=== PATIENT | female | born 1975 | race African-American/Black ===

== ENCOUNTER 2024-03-11 11:35 | Inpatient (IN) | payer OTHER ==
[~2024-03-11] VITALS: Ht 154.9 cm; Wt 58.0 kg
[2024-03-11 11:59] LABS: Urine Bacteria None Seen /hpf (None Seen)
[2024-03-11 12:17] LABS: Urine Blood 1+ /uL (Negative); Urine Clarity Turbid (Clear); Urine Color Yellow (Yellow); Urine Hyaline Cast FEW /lpf (0 - 2); Urine Mucus FEW (None Seen); Urine Protein, UAD 1+ (Negative); Urine Specific Gravity 1.022 (1.001-1.035); Urine Urobilinogen 3 mg/dL (Negative); Urine WBC 4 /hpf (0 - 5)
--- NOTE | 2024-03-11 13:11 | ED.PDOC ---
GI ASSESSMENT HPI Comments 48 year old female presents to the ED with chief complaint of N/V. Patient reports that she has been experiencing N/V with associated abdominal pain that radiates to the back and fatigue for the past 2 days. Patient denies any diarrhea, fever, chills, dysuria, chest pain, or SOB. Chief Complaint: Nausea/Vomiting Time Seen by MD: 13:08 Primary Care Provider: ADI Zimmer Notes: Nurses Notes, Medications, Allergies Allergies: Coded Allergies: Morphine (Verified Allergy, Severe, 03/11/24) Information Source: Patient Mode of Arrival: Ambulatory Timing: Days Duration: Since onset Prehospital treatment: None Quality: Aching Vomitus: Watery Stool: Normal Severity: Moderate Recent: None Recent Hx of: None Pain Location: Epigastric Modifying Factors: Nothing Associated sign and symptoms: Nausea, Vomiting, Abdominal Pain Past Medical History PAST MEDICAL HISTORY: COPD, GERD, High Lipids Past Medical History (Other): Cardiac valvular disease, Lupus Surgical History: Cholecystectomy Surgical History (Other): Heart mechanical valves x2 [employer] History: Denies all [employer] Hx Family History Family History: Reviewed,noncontributory to illness Social History Smoker: Non-Smoker Alcohol: Denies ETOH Use Drugs: Denies Drug Use Lives In: Home Constitutional: reports: fatigue; denies: chills, diaphoresis, fever, malaise, sweats, weakness, others EENTM: denies: blurred vision, double vision, ear bleeding, ear discharge, ear drainage, ear pain, ear ringing, eye pain, eye redness, hearing loss, mouth pain, mouth swelling, nasal discharge, nose bleeding, nose congestion, nose pain, photophobia, tearing, throat pain, throat swelling, voice changes, others Respiratory: denies: cough, hemoptysis, orthopnea, SOB at rest, shortness of breath, SOB with excertion, stridor, wheezing, others Cardiovascular: denies: chest pain, dizzy spells, diaphoresis, Dyspnea on exertion, edema, irregular heart beat, left arm pain, lightheadedness, palpitations, PND, syncope, others Gastrointestinal: reports: abdominal pain, nausea, vomiting; denies: abdomen distended, blood streaked bowels, constipated, diarrhea, dysphagia, difficulty swallowing, hematemesis, melena, poor appetite, poor fluid intake, rectal bleeding, rectal pain, others Genitourinary: denies: abnormal vagina bleeding, burning, dyspareunia, dysuria, flank pain, frequency, hematuria, incontinence, pain, , vagina discharge, urgency, others Neurological: denies: dizziness, fainting, headache, left sided numbness, left sided weakness, numbness, paresthesia, pre-existing deficit, right sided numbness, right sided weakness, seizure, speech problems, tingling, tremors, weakness, others Musculoskeletal: reports: back pain; denies: gout, joint pain, joint swelling, muscle pain, muscle stiffness, neck pain, others Integumetry: denies: bruises, change in color, change in hair/nails, dryness, laceration, lesions, lumps, rash, wounds, others Allergic/Immunocompromised: denies: Difficulty Healing, Frequent Infections, Hives, Itching, others Hematologic/Lymphatic: denies: anemia, blood clots, easy bleeding, easy bruising, swollen glands, others Endocrine: denies: excessive hunger, excessive sweating, excessive thirst, excessive urination, flushing, intolerance to cold, intolerance to heat, un explained weight gain, unexplained weight loss, others Psychiatric: denies: anxiety, bipolar disorder, depression, hopeless, panic disorder, schizophrenia, sleepless, suicidal, others All Other Systems: Reviewed and Negative Physical Exam General Appearance: Moderate Distress, Thin HEENT: Other (Pupils symmetric, no facial asymmetry, dry mucous membranes) Neck: Full Range of Motion, Normal Inspection Respiratory: Lungs Clear, No Accessory Muscle Use, No Respiratory Distress, Normal Breath Sounds Cardiovascular: No Edema, No JVD, Regular Rate/Rhythm Breast Exam: Deferred Gastrointestinal: Diffuse, Soft, Tenderness Genitalia: Deferred Pelvic: Deferred (Okay a day) Rectal: Deferred Extremities: Normal inspection, Normal range of motion, Non-tender, No pedal edema Musculoskeletal : Apperance: Normal Neurologic: Alert (Oriented x4), Normal Mood (Crying), Other (Ambulatory without difficulty. No gross focal deficit.) Cerebellar Function: NOT DONE Reflexes: NOT DONE Skin: Dry, Normal Color, Warm Lymphatic: NOT DONE Was a procedure done? Was a procedure done?: No GI differential Dx Differential Diagnosis: Cholecystitis, Diverticular disease, Gastritis/PUD, Gastroenteritis, Inflammatory BD, Ischemic Bowel, UTI, Dehydration, Diabetes/ DKA, Electrolyte Imbalance, Food Poisoning, , Bacterial, Parasitic, Viral, Hypovolemia, Impaction, Stress Ulcer X-Ray, Labs, Meds, VS Vital Signs Date Time Temp Pulse Resp B/P (MAP) Pulse Ox O2 Delivery O2 Flow Rate FiO2 03/11/24 16:44 105 19 162/95 03/11/24 16:19 98.0 120 20 153/91 (111) 100 98.0 03/11/24 16:14 120 20 155/91 03/11/24 13:36 97.9 114 14 95/60 (72) 98 97.9 03/11/24 13:36 114 15 97 Room Air* 0 21 03/11/24 11:45 98.5 118 16 104/74 (84) 99 Lab Test 03/11/24 16:09 03/11/24 13:02 03/11/24 11:50 Range/Units Lactic Acid Level 1.4 0.4-2.0 mmol/L Troponin I High Sensitivity 19 </=34 ng/L White Blood Count 11.6 H 4.4-10.8 10^3/uL Red Blood Count 3.60 L 4.0-5.20 10^6/uL Hemoglobin 12.3 12.2-16.2 g/dL Hematocrit 37.3 36.0-46.0 % Mean Corpuscular Volume 103.6 H 80.0-100.0 fL Mean Corpuscular Hemoglobin 34.1 H 28.0-32.0 pg Mean Corpuscular Hemoglobin Concent 32.9 32.0-36.0 g/dL Red Cell Distribution Width 14.9 H 11.8-14.3 % Platelet Count 270 140-450 10^3/uL Mean Platelet Volume 9.3 6.9-10.8 fL Neutrophils (%) (Auto) 75.8 37.0-80.0 % Lymphocytes (%) (Auto) 13.4 10.0-50.0 % Monocytes (%) (Auto) 9.7 0.0-12.0 % Eosinophils (%) (Auto) 0.2 0.0-7.0 % Basophils (%) (Auto) 0.9 0.0-2.0 % Neutrophils # (Auto) 8.8 H 1.6-8.6 10 ^3/uL Lymphocytes # (Auto) 1.6 0.4-5.4 10 ^3/uL Monocytes # (Auto) 1.1 0-1.3 10 ^3/uL Eosinophils # (Auto) 0 0-0.8 10 ^3/uL Basophils # (Auto) 0.1 0-0.2 10 ^3/uL Nucleated Red Blood Cells 0.0 % Sodium Level 141 136-145 mmol/L Potassium Level 2.8 L 3.5-5.1 mmol/L Chloride Level 99 98-107 mmol/L Carbon Dioxide Level 28 20-31 mmol/L Anion Gap 14 5-15 Blood Urea Nitrogen 24 H 9-23 mg/dL Creatinine 1.57 H 0.550-1.02 mg/dL Glomerular Filtration Rate Calc 40 >90 mL/min BUN/Creatinine Ratio 15.3 10.0-20.0 Serum Glucose 97 74-106 mg/dL Calcium Level 10.8 H 8.7-10.4 mg/dL Total Bilirubin 0.8 0.2-1.0 mg/dL Aspartate Amino Transferase (AST) 53 H 13-40 U/L Alanine Aminotransferase (ALT) 62 H 7-40 U/L Alkaline Phosphatase 168 H 46-116 U/L B-Type Natriuretic Peptide 115.93 0-100 pg/mL Total Protein 8.7 H 5.7-8.2 g/dL Albumin 4.9 H 3.2-4.8 g/dL Lipase 34 12-53 U/L Beta HCG, Quantitative 4.6 H 1.5-4.2 mIU/mL Urine Color Yellow Yellow Urine Clarity Turbid H Clear Urine pH 6.0 5.0-9.0 Urine Specific [place] 1.022 1.001-1.035 Urine Protein 1+ H Negative Urine Ketones 1+ H Negative Urine Blood 1+ H Negative /uL Urine Nitrite Negative Negative Urine Bilirubin Negative Negative Urine Urobilinogen 3 H Negative mg/dL Urine Leukocyte Esterase 1+ Negative /uL Urine RBC 2 0 - 4 /hpf Urine WBC 4 0 - 5 /hpf Urine Squamous Epithelial Cells Mod <5 /hpf Urine Bacteria None seen None Seen /hpf Urine Hyaline Casts Few 0 - 2 /lpf Urine Mucus Few None Seen Urine Glucose Normal Normal mg/dL Current Medications Medications (Trade) Dose Ordered Sig/Kunal Route Start Time Stop Time Status Last Admin Sodium Chloride 1,450 ml @ 1,450 mls/hr ONCE ONCE IV 03/11/24 13:15 03/11/24 14:14 DC 03/11/24 13:41 Ondansetron HCl (Zofran) 4 mg ONCE ONCE IV 03/11/24 13:15 03/11/24 13:16 DC 03/11/24 16:14 Hydromorphone HCl (Dilaudid Injection) 1 mg ONCE ONCE IV 03/11/24 13:15 03/11/24 13:16 DC 03/11/24 16:14 Potassium Bicarbonate (Klor-Con/Ef) 50 meq ONCE ONCE PO 03/11/24 15:30 03/11/24 16:05 DC 03/11/24 16:18 PROCEDURE(s): ABPL - CT AB PEL WO CON-NO ORAL OR IV REASON: diffuse abd pain, n/v ORDER NUMBER(s): [id number], ACCESSION NUMBER(s): [id number] CLINICAL HISTORY: diffuse abd pain, n/v TECHNIQUE: CT of the abdomen and pelvis was performed without intravenous c ontrast. This exam was performed according to our departmental dose optimization program. Up-to-date CT equipment and radiation dose reduction techniques are utilized as appropriate. [Radimetrics Exposure Report] CTDI: [CTDIvol] DLP: 250.67 WID: COMPARISON: None FINDINGS: Lower Thorax: Normal-sized heart. Prior median sternotomy and aortic valve prosthesis and mitral valve prosthesis . Patchy ground-glass opacities in the lingula. There is mild emphysema. Liver and Biliary system: Prior cholecystectomy. Mild choledocho ectasia status post cholecystectomy. Grossly unremarkable unopacified liver. Spleen: Unremarkable. Adrenal Glands and Kidneys: Thickened fifb-ivpgorh-qsng-right adrenal glands. No hydronephrosis or nephrolithiasis Pancreas and Retroperitoneum: Unremarkable. Aorta and Major Vessels: Moderate to marked calcified plaque in the aortoiliac vessels Bowel, Mesentery and Peritoneal space: Normal caliber small and large bowel normal appendix. Fluid-filled ascending colon. Mild wall thickening of the ascending and transverse colon. There is no free air or loculated fluid collection. Pelvis: There is an IUD in the uterus. There is no pelvic lymphadenopathy. Urinary bladder is mildly distended Abdominal wall and Osseous Structures: No destructive osseous lesion. IMPRESSION: 1. Mild wall thickening of the ascending and transverse colon which could be infectious or inflammatory colitis. 2. Fluid-filled ascending colon which May manifest as loose stools and/or diarrhea. 3. Patchy ground-glass opacities in the lingula which could reflect atypical pneumonia. 4. Mild emphysema. X-Ray, Labs, Meds, VS Comment 48-year-old female with a history of a PD, GERD, hyperlipidemia and cardiac valve replacement complaining of abdominal pain, nausea and vomiting Vitals remarkable for heart rate 118 Exam remarkable for diffuse abdominal tenderness to palpation, nontender to percussion, no rebound or guarding Rhythm strip independently interpreted by me: Sinus tach, rate 118, no ectopy. CT abdomen and pelvis IMPRESSION: 1. Mild wall thickening of the ascending and transverse colon which could be infectious or inflammatory colitis. 2. Fluid-filled ascending colon which May manifest as loose stools and/or diarrhea. 3. Patchy ground-glass opacities in the lingula which could reflect atypical pneumonia. 4. Mild emphysema. CBC remarkable for WBC 11.6, CMP remarkable for potassium 2.8, BUN 24, creatinine 1.57, AST 53, ALT 62, alkaline phos 168 UA abnormal consistent with either UTI or contaminated specimen Lipase normal Lactate normal Patient treated with the following in the ED: 30 cc/kilogram IV normal saline bolus, Zofran 4 mg IV, Dilaudid 1 mg IV, effervescent potassium 50 mEq p.o. , Zosyn 4.5 g IV On re-evaluation, patient states her pain has somewhat improved. Vitals are stable. Plan is to admit the patient for pain control, electrolyte correction, IV hydration and antibiotics. Time of 1ST Reevaluation: 14:08 Reevaluation 1ST: Unchanged Time of 2ND Reevaluation: 18:25 Reevaluation 2ND: Improved Patient Education/Counseling: Diagnosis, Treatment Family Education/Counseling: No Family Present Departure 1 Departure Time of Disposition: 15:27 Impression: Primary Impression: Abdominal pain Qualified Codes: R10.84 - Generalized abdominal pain Additional Impressions: Nausea and vomiting Qualified Codes: R11.2 - Nausea with vomiting, unspecified Hypokalemia Acute kidney injury Transaminitis Colitis Disposition: ADMITTED INPATIENT Admit to: Med Surg Condition: Fair Critical Care Note Critical Care Time?: No Stability Stability form required: No Heart Score Heart Score: Heart Score Response (Comments) Value History N/A 0 EKG N/A 0 Age N/A 0 Risk Factors N/A 0 Troponin N/A 0 Total 0 I personally scribed for MARIAN VOGEL MD ([email or web address]) on 03/11/24 at 13 :11. Electronically submitted by Bronson Cummings ([email or web address]). MARIAN VOGEL MD Mar 11, 2024 13:11
[2024-03-11 13:27] LABS: Basophils # (auto) 0.1 10 ^3/uL (0-0.2); Eosinophils # (auto) 0 10 ^3/uL (0-0.8); Eosinophils % (auto) 0.2 % (0.0-7.0); Hemoglobin 12.3 g/dL (12.2-16.2); Lymphocytes # (auto) 1.6 10 ^3/uL (0.4-5.4)
[2024-03-11 13:29] LABS: Basophils % (auto) 0.9 % (0.0-2.0); Hematocrit 37.3 % (36.0-46.0); Lymphocytes % (auto) 13.4 % (10.0-50.0); Mean Corpuscular Hemoglobin 34.1 pg (28.0-32.0); Mean Corpuscular Hgb Conc. 32.9 g/dL (32.0-36.0); Mean Corpuscular Volume 103.6 fL (80.0-100.0); Monocytes # (auto) 1.1 10 ^3/uL (0-1.3); Monocytes % (auto) 9.7 % (0.0-12.0); Neutrophils # (auto) 8.8 10 ^3/uL (1.6-8.6); Neutrophils % (auto) 75.8 % (37.0-80.0); Platelet Count (auto) 270 10^3/uL (140-450); Red Cell Distribution Width 14.9 % (11.8-14.3); White Blood Cell 11.6 10^3/uL (4.4-10.8)
[2024-03-11 13:36] VITALS: PULSE 114; RESP 15; O2SAT 97
[2024-03-11 13:41] LABS: Anion Gap 14 (5-15); BUN/Creatinine Ratio 15.3 (10.0-20.0); Carbon Dioxide 28 mmol/L (20-31); Chloride 99 mmol/L (98-107); Glucose 97 mg/dL (74-106); Sodium 141 mmol/L (136-145)
[2024-03-11] MEDS: SODIUM CHLORIDE 0.9% 1,450 ML IV ONE (13:41)
[2024-03-11 13:42] LABS: Bilirubin, Total 0.8 mg/dL (0.2-1.0)
[2024-03-11 13:45] LABS: Alanine Aminotransferase 62 U/L (7-40); Albumin 4.9 g/dL (3.2-4.8); Alkaline Phosphatase 168 U/L (46-116); Aspartate Aminotransferase 53 U/L (13-40); Blood Urea Nitrogen 24 mg/dL (9-23); Calcium 10.8 mg/dL (8.7-10.4); Potassium 2.8 mmol/L (3.5-5.1); Total Protein 8.7 g/dL (5.7-8.2)
[2024-03-11] MEDS: HYDROmorphone HCL 2 MG/ML VL/or syr IV ONE (16:14)
[2024-03-11] MEDS: ONDANSETRON HCL 4 MG/2 ML VIAL IV ONE (16:14)
[2024-03-11] MEDS: POTASSIUM EFFERVESENT TAB 25 MEQ PO ONE (16:18)
--- NOTE | 2024-03-11 18:04 | DVH ---
CLINICAL HISTORY: diffuse abd pain, n/v TECHNIQUE: CT of the abdomen and pelvis was performed without intravenous contrast. This exam was per formed according to our departmental dose optimization program. Up-to-date CT equipment and radiation dose reduction techniques are utilized as appropriate. [Radimetrics Exposure Report] CTDI: [CTDIvol] DLP: 250.67 WID: COMPARISON: None FINDINGS: Lower Thorax: Normal-sized heart. Prior median sternotomy and aortic valve prosthesis and mitral valv e prosthesis . Patchy ground-glass opacities in the lingula. There is mild emphysema. Liver and Biliary system: Prior cholecystectomy. Mild choledocho ectasia status post cholecystectomy. Grossly unremarkable unopacified liver. Spleen: Unremarkable. Adrenal Glands and Kidneys: Thickened yqdm-yudyeig-hhjo-right adrenal glands. No hydronephrosis or ne phrolithiasis Pancreas and Retroperitoneum: Unremarkable. Aorta and Major Vessels: Moderate to marked calcified plaque in the aortoiliac vessels Bowel, Mesentery and Peritoneal space: Normal caliber small and large bowel normal appendix. Fluid-fi lled ascending colon. Mild wall thickening of the ascending and transverse colon. There is no free ai r or loculated fluid collection. Pelvis: There is an IUD in the uterus. There is no pelvic lymphadenopathy. Urinary bladder is mildly distended Abdominal wall and Osseous Structures: No destructive osseous lesion. IMPRESSION: 1. Mild wall thickening of the ascending and transverse colon which could be infectious or inflammato ry colitis. 2. Fluid-filled ascending colon which May manifest as loose stools and/or diarrhea. 3. Patchy ground-glass opacities in the lingula which could reflect atypical pneumonia. 4. Mild emphysema.
[2024-03-11] MEDS: PIPERACILLIN-TAZO 4.5GM 100 ML IV ONE (18:30)
[2024-03-11] MEDS ORDERED: ACETAMINOPHEN 325 MG TAB PO PRN (18:45)
[2024-03-11] MEDS: PANTOPRAZOLE 40 MG TAB PO ONE (18:45)
[2024-03-11 20:47] VITALS: TEMP 98.7
[2024-03-11] MEDS: metroNIDAZOLE 500MG/100ML 100 ML IV SCH (21:55)
[2024-03-11] MEDS: ATORVASTATIN 20 MG TAB PO SCH (21:55)
[2024-03-11] MEDS: busPIRone HCL 10 MG TAB PO SCH (21:55)
[2024-03-11] MEDS: HYDROcodone-ACET 5/325MG TAB PO PRN (21:56)
[2024-03-11] MEDS: ONDANSETRON HCL 4 MG/2 ML VIAL IV PRN (21:56)
--- NOTE | 2024-03-12 03:47 | DVHHP2 ---
History of Present Illness Reason for Visit: Abdominal pain History of Present Illness 48-year-old female presents for evaluation of abdominal pain. Patient endorses a three day history of diffuse abdominal pain with associated nausea and vomiting. Denies diarrhea or fever. No cardiac or respiratory complaints reported. Past Medical History Dyslipidemia, COPD, GERD, lupus Past Surgical History Heart valve replacement Family History Noncontributory Smoke: No ALCOHOL: none Drugs: None Lives: with Family Review of Systems Review of Systems Review of systems are currently negative otherwise addressed in HPI. Allergies: Coded Allergies: Morphine (Verified Allergy, Severe, 03/11/24) Medications Current Medications Medications Dose Ordered Sig/Kunal Route Start Time Stop Time Status Last Admin Dose Admin Atorvastatin Calcium 20 mg HS PO 03/11/24 22:00 03/11/24 21:55 20 MG Pantoprazole Sodium 40 mg DAILY@0600 PO 03/12/24 06:00 Buspirone HCl 15 mg Q12HR PO 03/11/24 22:00 03/11/24 21:55 15 MG Ceftriaxone Sodium 50 ml @ 100 mls/hr DAILY@09 IV 03/12/24 09:00 Metronidazole 100 ml @ 100 mls/hr Q8HR IV 03/11/24 22:00 03/11/24 21:55 100 MLS/HR Acetaminophen/ Hydrocodone Bitart 1 tab Q4HP PRN PO 03/11/24 18:45 03/11/24 21:56 1 TAB Ondansetron HCl 4 mg Q4HP PRN IV 03/11/24 18:45 03/11/24 21:56 4 MG Acetaminophen 650 mg Q6HP PRN PO 03/11/24 18:45 Exam Vital Signs Vital Signs Date Time Temp Pulse Resp B/P (MAP) Pulse Ox O2 Delivery O2 Flow Rate FiO2 03/12/24 01:22 97 16 118/67 (84) 100 03/11/24 20:47 98.7 98.7 03/11/24 13:36 Room Air* 0 21 Exam Gen: 48-year-old female in mild distress Skin: Warm, dry, normal color and texture, no rash. HEENT: Normocephalic atraumatic, mucous membranes moist and pink. Neck: Cervical and supraclavicular nodes normal without enlargement, trachea is midline, thyroid gland is normal without masses. Pulmonary: Clear to auscultation and percussion bilaterally. Cardiac: Regular rate and rhythm. No murmur Abdomen: Soft, nontender, nondistended, bowel sounds present all 4 quadrants, no guarding, no rigidity, no organomegaly. Extremities: No cyanosis, clubbing, no edema Neuro: Cranial nerves II through XII grossly intact, normal affect and speech, no focal motor deficits. Labs/Xrays ORDERING PHYSICIAN: MARIAN VOGEL MD PROCEDURE(s): ABPL - CT AB PEL WO CON-NO ORAL OR IV REASON: diffuse abd pain, n/v ORDER NUMBER(s): [id number], ACCESSION NUMBER(s): [id number] CLINICAL HISTORY: diffuse abd pain, n/v TECHNIQUE: CT of the abdomen and pelvis was performed without intravenous contrast. This exam was performed according to our departmental dose optimization program. Up-to-date CT equipment and radiation dose reduction techniques are utilized as appropriate. [Radimetrics Exposure Report] CTDI: [CTDIvol] DLP: 250.67 WID: COMPARISON: None FINDINGS: Lower Thorax: Normal-sized heart. Prior median sternotomy and aortic valve prosthesis and mitral valve prosthesis . Patchy ground-glass opacities in the lingula. There is mild emphysema. Liver and Biliary system: Prior cholecystectomy. Mild choledocho ectasia status post cholecystectomy. Grossly unremarkable unopacified liver. Spleen: Unremarkable. Adrenal Glands and Kidneys: Thickened qxon-eplvkip-poce-right adrenal glands. No hydronephrosis or nephrolithiasis Pancreas and Retroperitoneum: Unremarkable. Aorta and Major Vessels: Moderate to marked calcified plaque in the aortoiliac vessels Bowel, Mesentery and Peritoneal space: Normal caliber small and large bowel normal appendix. Fluid-filled ascending colon. Mild wall thickening of the ascending and transverse colon. There is no free air or loculated fluid collection. Pelvis: There is an IUD in the uterus. There is no pelvic lymphadenopathy. Urinary bladder is mildly distended Abdominal wall and Osseous Structures: No destructive osseous lesion. IMPRESSION: 1. Mild wall thickening of the ascending and transverse colon which could be infectious or inflammatory colitis. 2. Fluid-filled ascending colon which May manifest as loose stools and/or diarrhea. 3. Patchy ground-glass opacities in the lingula which could reflect atypical pneumonia. 4. Mild emphysema. Labs Test 03/11/24 21:22 03/11/24 16:09 03/11/24 13:02 03/11/24 11:50 Range/Units Troponin I High Sensitivity 11 </=34 ng/L Lactic Acid Level 1.4 0.4-2.0 mmol/L White Blood Count 11.6 H 4.4-10.8 10^3/uL Red Blood Count 3.60 L 4.0-5.20 10^6/uL Hemoglobin 12.3 12.2-16.2 g/dL Hematocrit 37.3 36.0-46.0 % Mean Corpuscular Volume 103.6 H 80.0-100.0 fL Mean Corpuscular Hemoglobin 34.1 H 28.0-32.0 pg Mean Corpuscular Hemoglobin Concent 32.9 32.0-36.0 g/dL Red Cell Distribution Width 14.9 H 11.8-14.3 % Platelet Count 270 140-450 10^3/uL Mean Platelet Volume 9.3 6.9-10.8 fL Neutrophils (%) (Auto) 75.8 37.0-80.0 % Lymphocytes (%) (Auto) 13.4 10.0-50.0 % Monocytes (%) (Auto) 9.7 0.0-12.0 % Eosinophils (%) (Auto) 0.2 0.0-7.0 % Basophils (%) (Auto) 0.9 0.0-2.0 % Neutrophils # (Auto) 8.8 H 1.6-8.6 10 ^3/uL Lymphocytes # (Auto) 1.6 0.4-5.4 10 ^3/uL Monocytes # (Auto) 1.1 0-1.3 10 ^3/uL Eosinophils # (Auto) 0 0-0.8 10 ^3/uL Basophils # (Auto) 0.1 0-0.2 10 ^3/uL Nucleated Red Blood Cells 0.0 % Sodium Level 141 136-145 mmol/L Potassium Level 2.8 L 3.5-5.1 mmol/L Chloride Level 99 98-107 mmol/L Carbon Dioxide Level 28 20-31 mmol/L Anion Gap 14 5-15 Blood Urea Nitrogen 24 H 9-23 mg/dL Creatinine 1.57 H 0.550-1.02 mg/dL Glomerular Filtration Rate Calc 40 >90 mL/min BUN/Creatinine Ratio 15.3 10.0-20.0 Serum Glucose 97 74-106 mg/dL Calcium Level 10.8 H 8.7-10.4 mg/dL Total Bilirubin 0.8 0.2-1.0 mg/dL Aspartate Amino Transferase (AST) 53 H 13-40 U/L Alanine Aminotransferase (ALT) 62 H 7-40 U/L Alkaline Phosphatase 168 H 46-116 U/L B-Type Natriuretic Peptide 115.93 0-100 pg/mL Total Protein 8.7 H 5.7-8.2 g/dL Albumin 4.9 H 3.2-4.8 g/dL Lipase 34 12-53 U/L Beta HCG, Quantitative 4.6 H 1.5-4.2 mIU/mL Urine Color Yellow Yellow Urine Clarity Turbid H Clear Urine pH 6.0 5.0-9.0 Urine Specific [place] 1.022 1.001-1.035 Urine Protein 1+ H Negative Urine Ketones 1+ H Negative Urine Blood 1+ H Negative /uL Urine Nitrite Negative Negative Urine Bilirubin Negative Negative Urine Urobilinogen 3 H Negative mg/dL Urine Leukocyte Esterase 1+ Negative /uL Urine RBC 2 0 - 4 /hpf Urine WBC 4 0 - 5 /hpf Urine Squamous Epithelial Cells Mod <5 /hpf Urine Bacteria None seen None Seen /hpf Urine Hyaline Casts Few 0 - 2 /lpf Urine Mucus Few None Seen Urine Glucose Normal Normal mg/dL Assessment/Plan Assessment/Plan Assessment Acute colitis Acute kidney injury Urinary tract infection Transaminitis Electrolyte imbalance Plan Admit the patient to [facility] to the hospitalist Rocephin/Flagyl Monitor LFTs Replete electrolytes Resume home medications Continue treatment per orders. Plan discussed with: Patient My Orders Orders - TERRY HARRIS AGACNP Procedure Category Date Status Time Atorvastatin (Lipitor) PHA 03/11/24 In Process 22:00 Pantoprazole Tablet PHA 03/12/24 In Process (Protonix Tablet) 06:00 Buspirone Hcl Tablet PHA 03/11/24 In Process (Buspar Tablet) 22:00 Ceftriaxone 1gm/50ml PHA 03/12/24 In Process D5w (Rocephin) 09:00 Metronidazole PHA 03/11/24 In Process 500mg/100ml (Flagyl 22:00 Basic Metabolic Panel LAB 03/12/24 Logged 04:00 Admit ADMIT 03/11/24 Transmitted 18:43 Hydrocodone-Acet PHA 03/11/24 In Process 5/325mg Tab ([place] 18:45 Ondansetron Hcl PHA 03/11/24 In Process (Zofran) 18:45 Complete Blood Count LAB 03/12/24 Logged 04:00 Condition: Stable MELA 03/11/24 In Process 18:43 Acetaminophen Tablet PHA 03/11/24 In Process (Tylenol Tablet) 18:45 Clear Liq Diet DIET 03/12/24 Transmitted Breakfast Bedrest With Bathroom MELA 03/11/24 In Process Privileg 18:43 Date of Service: Mar 11, 2024 Billing Provider: TERRY HARRIS Common Visit Codes: [id number] INP/OBS CARE (HIGH) TERRY HARRIS Mar 12, 2024 03:47
[2024-03-12] MEDS: PANTOPRAZOLE 40 MG TAB PO SCH (05:28)
[2024-03-12 06:52] LABS: Anion Gap 11 (5-15); Calcium 9.2 mg/dL (8.7-10.4); Carbon Dioxide 26 mmol/L (20-31); Chloride 103 mmol/L (98-107); Sodium 140 mmol/L (136-145)
[2024-03-12 06:57] LABS: Basophils # (auto) 0.1 10 ^3/uL (0-0.2); Eosinophils # (auto) 0.1 10 ^3/uL (0-0.8); Hemoglobin 10.1 g/dL (12.2-16.2); Mean Corpuscular Volume 104.2 fL (80.0-100.0); Monocytes # (auto) 0.7 10 ^3/uL (0-1.3)
[2024-03-12 06:58] LABS: Blood Urea Nitrogen 16 mg/dL (9-23)
[2024-03-12 07:00] LABS: Basophils % (auto) 0.7 % (0.0-2.0); Eosinophils % (auto) 1.4 % (0.0-7.0); Hematocrit 30.4 % (36.0-46.0); Lymphocytes # (auto) 1.4 10 ^3/uL (0.4-5.4); Lymphocytes % (auto) 16.5 % (10.0-50.0); Mean Corpuscular Hemoglobin 34.6 pg (28.0-32.0); Mean Corpuscular Hgb Conc. 33.2 g/dL (32.0-36.0); Monocytes % (auto) 8.5 % (0.0-12.0); Neutrophils # (auto) 6.3 10 ^3/uL (1.6-8.6); Neutrophils % (auto) 72.9 % (37.0-80.0); Platelet Count (auto) 213 10^3/uL (140-450); Red Blood Cells 2.92 10^6/uL (4.0-5.20); Red Cell Distribution Width 14.4 % (11.8-14.3); White Blood Cell 8.7 10^3/uL (4.4-10.8)
[2024-03-12 07:01] LABS: Glucose 52 mg/dL (74-106)
[2024-03-12 07:05] LABS: Potassium 2.4 mmol/L (3.5-5.1)
[2024-03-12 07:15] LABS: INR 2.16 (0.9-1.15); Partial Thromboplastin Time 35.9 SEC (24.5-34.5); Prothrombin Time 21.6 sec (9.3-11.8)
[2024-03-12] MEDS: cefTRIAXone 1GM/50ML D5W 50 ML IV SCH (09:01)
[2024-03-12 09:30] VITALS: BP 114/68; PULSE 98; RESP 16; O2SAT 99
[2024-03-12] MEDS: POTASSIUM CHL 20MEQ/100ML 100 ML IV SCH (10:45)
[2024-03-12] MEDS ORDERED: WARFARIN SODIUM 2.5 MG TAB PO ONE (17:00)
== END 2024-03-12 12:17 | disposition left against medical advice (07) | DRG 371 ==
LOC: ER 11:35 → OVERFLOW 18:43
PROVIDERS: ADMIT Nurse Practitioner; ATTEND Hospitalist
PROC: 05HA33Z Insertion of Infusion Device into Left Brachial Vein, Percutaneous Approach (ICD-10-PCS; principal; 2024-03-11)
PROC: B54NZZA Ultrasonography of Left Upper Extremity Veins, Guidance (ICD-10-PCS; 2024-03-11)
DX: A04.9 Bacterial intestinal infection, unspecified (principal); N17.0 Acute kidney failure with tubular necrosis; N39.0 Urinary tract infection, site not specified; K21.9 Gastro-esophageal reflux disease without esophagitis; J44.9 Chronic obstructive pulmonary disease, unspecified; E78.5 Hyperlipidemia, unspecified; E87.6 Hypokalemia; R74.01 Elevation of levels of liver transaminase levels; Z53.29 Procedure and treatment not carried out because of patient's decision for other reasons; Z88.5 Allergy status to narcotic agent; Z90.49 Acquired absence of other specified parts of digestive tract; Z95.2 Presence of prosthetic heart valve
CPT/HCPCS: 36415; 74176; 80048; 80053; 81001; 83605; 83690; 83880; 84484; 84702; 85025; 85610; 85730; G0378; J2405; J3490